=== PATIENT | female | born 1980 | race Caucasian/White ===

== ENCOUNTER 2019-11-01 14:27 | Observation (INO) | payer MEDICAID ==
[~2019-11-01] VITALS: Ht 157.5 cm; Wt 62.6 kg
[2019-11-01 14:34] VITALS: BP 118/84
--- NOTE | 2019-11-01 14:50 | NUR ---
PT AMBULATED TO BATHROOM FOR URINE SAMPLE. STEADY GAIT.
--- NOTE | 2019-11-01 14:58 | NUR ---
US AT BEDSIDE.
--- NOTE | 2019-11-01 15:07 | NUR ---
39 Y/ F PRESENTS TO ED WITH FOR VAGINAL BLEEDING SINCE 10/29/19, 11 WEEKS . G3, P2, L 2. PT C/O CRAMPING 4/10 PAIN, NON RADIATING. PT REPORTS BLEEDING WHILE VOIDING ONLY. PT GOES THROUGH 1 PAD PER DAY AND REPORTS MILD BLEEDING. DENIES URINARY FREQ OR DYSURIA. DENEIS N/V/D. DENIES CP, SOB. PT A &O X 4, NO DISTRESS NOTED. LUNGS CLEAR, S1S2 PRESENT. ABDOMEN SOFT, ACTIVE BS IN ALL 4 QUADRANTS. DENIES PMH NKDA
[2019-11-01 15:09] LABS: BASOPHILS # (AUTO) 0.1 K/uL (0.00-0.22); BASOPHILS % (AUTO) 0.6 % (0.0-2.0); EOSINOPHILS # (AUTO) 0.4 K/uL (0-0.4); EOSINOPHILS % (AUTO) 3.6 % (0.0-4.0); HEMATOCRIT 43.2 % (36-48); HEMOGLOBIN 13.9 g/dL (12.0-16.0); LYMPHOCYTES # (AUTO) 2.3 K/uL (2.5-16.5); LYMPHOCYTES % (AUTO) 22.3 % (20.5-51.1); MEAN CORPUSCULAR HEMOGLOBIN 27 pg (27-31); MEAN CORPUSCULAR HGB CONC 32 g/dL (33-37); MEAN CORPUSCULAR VOLUME 83.2 fL (80-94); MONOCYTES # (AUTO) 0.6 K/uL (0.8-1.0); MONOCYTES % (AUTO) 5.6 % (1.7-9.3); NEUTROPHILS # (AUTO) 7.1 K/uL (1.8-7.7); NEUTROPHILS % (AUTO) 67.9 % (42.2-75.2); PLATELET COUNT (AUTO) 318 K/uL (140-450); RED BLOOD CELL COUNT(AUTO) 5.19 MIL/uL (4.20-5.40); RED CELL DISTRIBUTION WIDTH 14.5 % (11.6-13.7); WHITE BLOOD COUNT (AUTO) 10.5 K/uL (4.8-10.8)
[2019-11-01 15:10] LABS: APPEARANCE,URINE CLEAR (CLEAR); BILIRUBIN,URINE NEGATIVE (NEGATIVE); BLOOD, URINE 3+ (NEGATIVE); COLOR,URINE YELLOW (YELLOW); LEUKOCYTE ESTERASE ,URINE NEGATIVE (NEGATIVE); NITRITE, URINE NEGATIVE (NEGATIVE); UGLUCOSE NEGATIVE (NEGATIVE)
[2019-11-01] MEDS ORDERED: MORPHINE SULFATE 4 MG/ML SYR IVP ONE (16:25)
[2019-11-01] MEDS ORDERED: KETOROLAC 30 MG/ML VIAL IVP ONE (16:35)
--- NOTE | 2019-11-01 16:41 | NUR ---
PT STATED LAST MEAL OF SMALL BREAD AND WATER WAS AT 1000.
[2019-11-01 16:55] LABS: RBC,URINE 11-20 (MOD) /HPF (0-5); WBC,URINE NONE SEEN /HPF (0-5)
--- NOTE | 2019-11-01 17:00 | NUR ---
Patient will be admitted to care of DR. BORJAS. Admited to [facility]. Will go to room 112A . Belongings list completed. Report to
--- NOTE | 2019-11-01 17:00 | NUR ---
PATIENT WHEELED TO FLOOR VIA WHEELCHAIR. PATIENT AOX4, AMBULATORY, NO SOB OR DISTRESS NOTED ON ROOM AIR. C/O PAIN, WILL ASSESS AND MEDICATE. RECEIVED REPORT FROM ER NURSE AT BEDSIDE FOR CONTINUITY OF CARE. ELIASIB AT BEDSIDE. PATIENT [place] SPEAKING ONLY. UPDATED BOARD. VS WNL. UPDATED THEM ABOUT PLAN OF CARE, THEY ORIENTED THEM TO ROOM, CALL LIGHT, TV, VISITING HOURS, AND BATHROOM. VERBALIZED UNDERSTANDING. PATIENT'S IV INTACT, ASYMPTOMATIC, SALINE LOCKED. CALL LIGHT WITHIN REACH, WILL CONTINUE TO MONITOR PATIENT.
[2019-11-01 17:20] VITALS: BP 111/67
--- NOTE | 2019-11-01 18:30 | NUR ---
PATIENT WHEELED OFF FLOOR TO GO TO PROCEDURE WITH DR. BORJAS. CONSENT NOT YET SIGNED BECAUSE DOCTOR HAD NOT SPOKEN TO PATIENT IN ER. STILL IN ROOM. WILL WAIT FOR PATIENT TO COME BACK.
[2019-11-01] MEDS ORDERED: DESFLURANE 240 ML BTL INH ONE (19:12)
[2019-11-01] MEDS ORDERED: KETOROLAC 30 MG/ML VIAL ONE (19:12)
[2019-11-01] MEDS ORDERED: ONDANSETRON 4 MG/2 ML VIAL ONE (19:12)
[2019-11-01] MEDS ORDERED: fentaNYL 0.05 MG/ML VIAL ONE ×2 (19:12→19:13)
[2019-11-01] MEDS ORDERED: DEXAMETHASONE 4 MG/ML VIAL ONE (19:12)
[2019-11-01] MEDS ORDERED: PROPOFOL 200 MG/20 ML VIAL IV ONE (19:12)
[2019-11-01] MEDS ORDERED: IBUPROFEN 800 MG TAB PO PRN (19:15)
[2019-11-01] MEDS ORDERED: oxyCODONE/APAP 5/325 MG 1 TAB TAB PO PRN (19:15)
[2019-11-01] MEDS ORDERED: ONDANSETRON 4 MG/2 ML VIAL IVP PRN (19:30)
[2019-11-01] MEDS ORDERED: HYDROmorphone 1 MG/ML AMP IVP PRN (19:30)
--- NOTE | 2019-11-01 19:30 | NUR ---
REPORT GIVEN TO KEY WORKER NURSE. PATIENT STILL IN PROCEDURE WITH DR. BORJAS.
--- NOTE | 2019-11-01 20:20 | NUR ---
PATIENT IS BACK ON THE FLOOR. PATIENT IS IN STABLE CONDITION. VITALS WERE TAKEN. WILL CONTINUE TO MONITOR.
[2019-11-01] MEDS: LACTATED RINGERS 1,000 ML IV SCH (20:29)
--- NOTE | 2019-11-01 20:35 | NUR ---
HELPED PATIENT AMBULATE TO THE BATHROOM. PATIENT TOLERATED IT WELL NO DISTRESS NOTED. WILL CONTINUE TO MONITOR.
--- NOTE | 2019-11-01 20:40 | NUR ---
GAVE PATIENT PAD. WILL MONITOR FOR BLEEDING.
--- NOTE | 2019-11-01 21:00 | NUR ---
PATIENT CHANGED PAD MODERATE AMOUNT OF BLOOD NOTED. WILL CONTINUE TO MONITOR.
--- NOTE | 2019-11-01 22:50 | NUR ---
PATIENT CHANGED PAD SATURATED WITH MODERATE AMOUNT OF BLOOD. WILL CONTINUE TO MONITOR.
[2019-11-02] VITALS: BP 96/56
--- NOTE | 2019-11-02 00:01 | NUR ---
VITALS WERE TAKEN. PATIENT IN STABLE CONDITION. WILL CONTINUE TO MONITOR.
--- NOTE | 2019-11-02 02:30 | NUR ---
CHECKED PATIENT. PATIENT SLEEPING RESPIRATION EVEN UNLABORED ON ROOM AIR. NO DISTRESS NOTED. WILL CONTINUE TO MONITOR.
--- NOTE | 2019-11-02 03:41 | NUR ---
CHECKED PATIENT. PATIENT STATED THAT SHE BLEED LESS NOW COMPARE BEFORE. WILL CONTINUE TO MONITOR.
[2019-11-02] MEDS: LACTATED RINGERS 1,000 ML IV SCH ×2 (06:36→15:15)
--- NOTE | 2019-11-02 07:35 | NUR ---
RECEIVED BEDSIDE REPORT FROM PM RN PT AWAKE IN BED INTRODUCED MYSELF AND INFORMED PT TO CALL IF SHE NEEDS ANYTHING. ALL SAFETY MEASURES ARE IN PLACE. WILL CONTINUE TO MONITOR.
[2019-11-02 08:50] VITALS: BP 103/49
--- NOTE | 2019-11-02 09:01 | NUR ---
PATIENT HAS BEEN SCREENED AND CATEGORIZED LOW NUTRITION RISK. PATIENT WILL BE SEEN WITHIN 7 DAYS OF ADMISSION. 2.10.[address]
--- NOTE | 2019-11-02 09:34 | NUR ---
FREQUENT ROUNDING ON PT PT APPEARS STABLE AND IN NO APPARENT DISTRESS. ALL SAFETY MEASURES ARE IN PLACE WILL CONTINUE TO MONITOR.
--- NOTE | 2019-11-02 11:34 | NUR ---
FREQUENT ROUNDING ON PT PT APPEARS STABLE AND IN NO APPARENT DISTRESS. ALL SAFETY MEASURES ARE IN PLACE WILL CONTINUE TO MONITOR.
--- NOTE | 2019-11-02 11:55 | NUR ---
SURY assessment/discharge plan Basic Screen: Yes Name: Polly Dick Home Relationship: Pre-Admission Living Arrangements: Lives with Other Other: Polly Dick Prior ADL Independent Current Home Health Name/Tel: N/A Current DME/02 Name/Tel: N/A Current Hospice Name/Tel: N/A Current Dialysis Name/Tel: N/A Healthcare Decision Maker: Patient Advance Directive No Information Taught: Advance Directive Community Resources Person Taught: Patient Spouse Teaching Tools: Community Resources Computer Generated Print Verbal Factors Affecting Learning: None Participation Level: Active Evaluation: Gestures Understanding Verbalizes Understanding Educator: SURY Feliz Discipline: Case Mgt/Social Svcs Tentative Discharge Plan Summary: Patient is a 39 year old female admitted for missed . I met with patient and patient's Polly Dick at bedside. Patient alert and oriented x4. Patient and Polly speak Indonesian. Patient lives at home with Polly and plans to return home upon discharge. Patient has been following with . She denied hx of mental health and alcohol/substance abuse. Patient reported Polly is emotionally supportive and she does not have any questions/concerns at this time. I provided them with education on [employer] www.[employer].org for community resources. Relay Tester Helper and/or Health Education Specialist will follow up as needed. Signature: SURY Feliz Date: Nov 02, 2019
--- NOTE | 2019-11-02 13:03 | NUR ---
FREQUENT ROUNDING ON PT PT APPEARS STABLE AND IN NO APPARENT DISTRESS. ALL SAFETY MEASURES ARE IN PLACE WILL CONTINUE TO MONITOR.
--- NOTE | 2019-11-02 15:34 | NUR ---
FREQUENT ROUNDING ON PT PT APPEARS STABLE AND IN NO APPARENT DISTRESS. ALL SAFETY MEASURES ARE IN PLACE
[2019-11-02 16:34] VITALS: BP 112/62
--- NOTE | 2019-11-02 17:22 | NUR ---
YOVANY Hood reminded to follow up with Dr. Simon regarding flu shot. Patient wants it upon discharge. Sana said she will.
[2019-11-02] MEDS ORDERED: DOCU-299 PO (17:40)
[2019-11-02] MEDS ORDERED: IBUP-2217 PO (17:40)
[2019-11-02] MEDS ORDERED: INFLUENZA VACCINE QUAD 0.5 ML SYR IMVAC PRN (18:15)
--- NOTE | 2019-11-02 18:47 | NUR ---
REVIEWED DISCHARGE INSTRUCTIONS WITH PATIENT AND FAMILY. USED SUPERVISOR OPERATIONS ANSWERED ALL QUESTIONS INFORMED PT TO FOLLOW UP WITH DR. BORJAS ON 11/08-11/[address] BORJAS PROVIDED. INFORMED PT OF DISCHARGE MEDICATIONS AT [facility] ON [address] ANSWERED ALL QUESTIONS ADMINISTERED FLU SHOT IN LEFT UPPER ARM. PT TOLERATED WELL. REMOVED IV IV TIP INTACT REMOVED ID BAND. PT WHEELED OUT VIA WHEEL CHAIR BY RUDDY MCNULTY. PT LEFT WITH SPOUSE AND CHILD. PT LEFT WITH ALL PERSONAL BELONGINGS.
== END 2019-11-02 18:55 | disposition home or self-care (01) ==
LOC: MED 14:27 → MTU 16:27 → MED 16:56 → MTU 16:56 → MDS 16:56 → MTU 16:57 → MOR 17:48
PROVIDERS: ADMIT Obstetrics & Gynecology; ATTEND Obstetrics & Gynecology
DX: O02.1 Missed abortion (principal); O09.521 Supervision of elderly multigravida, first trimester; Z3A.11 11 weeks gestation of pregnancy
CPT/HCPCS: 36415; 59820; 76817; 81001; 84702; 85025; 86900; 86901; 87081; 88305; 96374; 99285; G0378; J1100; J1885; J2405; J2704; J3010; J7030; J7120; Q0092

== ENCOUNTER 2022-03-01 14:30 | Observation (INO) | payer MEDICAID ==
[~2022-03-01] VITALS: Ht 152.4 cm; Wt 82.6 kg
[~2022-03-01 14:30] MED LIST: DOCU-299 PO; IBUP-2217 PO
[2022-03-01 15:53] LABS: BASOPHILS % (AUTO) 0.2 % (0.0-2.0); EOSINOPHILS # (AUTO) 0.3 K/uL (0-0.4); EOSINOPHILS % (AUTO) 2.6 % (0.0-4.0); HEMATOCRIT 38.5 % (36-48); HEMOGLOBIN 12.5 g/dL (12.0-16.0); LYMPHOCYTES # (AUTO) 1.7 K/uL (2.5-16.5); LYMPHOCYTES % (AUTO) 17.6 % (20.5-51.1); MEAN CORPUSCULAR HEMOGLOBIN 27 pg (27-31); MEAN CORPUSCULAR HGB CONC 33 g/dL (33-37); MEAN CORPUSCULAR VOLUME 82.8 fL (80-94); MONOCYTES % (AUTO) 9.8 % (1.7-9.3); NEUTROPHILS # (AUTO) 6.9 K/uL (1.8-7.7); NEUTROPHILS % (AUTO) 69.8 % (42.2-75.2); PLATELET COUNT (AUTO) 242 K/uL (140-450); RED BLOOD CELL COUNT(AUTO) 4.65 MIL/uL (4.20-5.40); RED CELL DISTRIBUTION WIDTH 14.2 % (11.6-13.7); WHITE BLOOD COUNT (AUTO) 9.9 K/uL (4.8-10.8)
[2022-03-01 16:09] LABS: ALBUMIN 2.5 g/dL (3.4-5.0); ANION GAP 11.3 (8-16); CARBON DIOXIDE 23.6 mmol/L (21-32); CREATININE 0.5 mg/dL (0.6-1.3); POTASSIUM 3.9 mmol/L (3.5-5.1); TOTAL BILIRUBIN 0.3 mg/dL (0.0-1.0)
[2022-03-01] MEDS ORDERED: LACTATED RINGERS 1,000 ML IV SCH (16:20)
[2022-03-01] MEDS ORDERED: BETAMETH ACET/BETAMETH NA PH 30 MG/5 ML VIAL IM SCH (16:20)
[2022-03-01] MEDS ORDERED: LACTATED RINGERS 500 ML IV SCH (16:27)
[2022-03-01 16:39] VITALS: BP 121/66
[2022-03-01] MEDS ORDERED: NIFEdipine 10 MG CAPLF PO SCH (18:13)
[2022-03-02] MEDS ORDERED: PNV91TAB8 PO (19:03)
== END 2022-03-01 21:40 | disposition home or self-care (01) ==
LOC: MLD 14:30
PROVIDERS: ADMIT Obstetrics & Gynecology; ATTEND Obstetrics & Gynecology
DX: O62.9 Abnormality of forces of labor, unspecified (principal); Z20.822 Contact with and (suspected) exposure to COVID-19; O26.893 Other specified pregnancy related conditions, third trimester; R60.0 Localized edema; Z3A.37 37 weeks gestation of pregnancy
CPT/HCPCS: 36415; 59025; 80053; 81000; 85025; 85384; 87426; 96360; 96361; 96372; G0378; J0702

== ENCOUNTER 2022-03-02 18:00 | Observation (INO) | payer MEDICAID ==
[~2022-03-02] VITALS: Ht 152.4 cm; Wt 82.6 kg
[~2022-03-02 18:00] MED LIST changes: -IBUP-2217 PO
[2022-03-02 18:12] VITALS: BP 126/69
[2022-03-02] MEDS ORDERED: BETAMETH ACET/BETAMETH NA PH 30 MG/5 ML VIAL IM ONE (19:00)
[2022-03-02] MEDS ORDERED: PNV91TAB8 PO (19:03)
== END 2022-03-02 20:10 | disposition home or self-care (01) ==
LOC: MED 18:00 → EDSTATUS 18:51 → MLD 18:52
PROVIDERS: ADMIT Obstetrics & Gynecology; ATTEND Obstetrics & Gynecology
DX: O60.03 Preterm labor without delivery, third trimester (principal); Z3A.36 36 weeks gestation of pregnancy
CPT/HCPCS: 59025; 96372; 96374; G0378; J0702; 99284

== ENCOUNTER 2022-03-04 07:30 | Inpatient (IN) | payer MEDICAID ==
[~2022-03-04] VITALS: Ht 152.4 cm; Wt 82.6 kg
[~2022-03-04 07:30] MED LIST changes: +PNV91TAB8 PO
[2022-03-04 08:00] VITALS: BP 125/79
[2022-03-04] MEDS ORDERED: AMPICILLIN 2,000 MG VIAL ONE ×2 (09:08→19:08)
[2022-03-04] MEDS: LACTATED RINGERS 1,000 ML IV SCH ×2 (09:42→19:57)
[2022-03-04] MEDS: AMPICILLIN 2,000 MG in NACL 0.9% 100 ML IV SCH ×2 (09:43→19:15)
[2022-03-04] MEDS: AZITHROMYCIN 500 MG in DEXTROSE 5% 250 ML IV SCH (11:20)
--- NOTE | 2022-03-04 14:24 | NUR ---
PATIENT HAS BEEN SCREENED AND CATEGORIZED LOW NUTRITION RISK. PATIENT WILL BE SEEN WITHIN 7 DAYS OF ADMISSION. 03/10/[address]
[2022-03-05] MEDS ORDERED: AMPICILLIN 2,000 MG VIAL ONE ×4 (00:22→19:26)
[2022-03-05] MEDS: AMPICILLIN 2,000 MG in NACL 0.9% 100 ML IV SCH ×4 (01:13→19:35)
[2022-03-05] MEDS: LACTATED RINGERS 1,000 ML IV SCH ×2 (06:00→16:58)
[2022-03-05] MEDS: AZITHROMYCIN 500 MG in DEXTROSE 5% 250 ML IV SCH (11:32)
[2022-03-06] MEDS: LACTATED RINGERS 1,000 ML IV SCH (00:50)
[2022-03-06] MEDS ORDERED: AMPICILLIN 2,000 MG VIAL ONE (00:53)
[2022-03-06] MEDS: AMPICILLIN 2,000 MG in NACL 0.9% 100 ML IV SCH ×2 (01:09→07:09)
[2022-03-06] MEDS ORDERED: AMPICILLIN 1,000 MG VIAL ONE (06:37)
== END 2022-03-06 07:45 | disposition home or self-care (01) | DRG 566 ==
LOC: MLD 07:30 → OBSVTOIN 08:55
PROVIDERS: ADMIT Obstetrics & Gynecology; ATTEND Obstetrics & Gynecology
DX: O42.913 Preterm premature rupture of membranes, unspecified as to length of time between rupture and onset of labor, third trimester (principal); Z20.822 Contact with and (suspected) exposure to COVID-19; Z3A.35 35 weeks gestation of pregnancy
CPT/HCPCS: 76815; 81000; J0290; J0456; J7060; Q0092

== ENCOUNTER 2024-06-23 12:11 | Emergency (ER) | payer MEDICAID, OTHER ==
[~2024-06-23] VITALS: Ht 152.4 cm; Wt 72.3 kg
[2024-06-23 12:20] VITALS: BP 125/75; PULSE 82; RESP 16; TEMP 97.7; O2SAT 97
[2024-06-23 12:49] LABS: APPEARANCE,URINE CLEAR (CLEAR); BILIRUBIN,URINE NEGATIVE (NEGATIVE); BLOOD, URINE NEGATIVE (NEGATIVE); COLOR,URINE YELLOW (YELLOW); LEUKOCYTE ESTERASE ,URINE NEGATIVE (NEGATIVE); NITRITE, URINE NEGATIVE (NEGATIVE); PROTEIN,URINE NEGATIVE (NEGATIVE); UGLUCOSE TRACE (NEGATIVE); UROBILINOGEN,URINE 0.2 EU/dL (0.2 - 1)
[2024-06-23] MEDS: ONDANSETRON 4 MG ODT PO ONE (12:55)
[2024-06-23] MEDS: ACETAMINOPHEN EXTRA STRENGTH 500 MG TAB PO ONE (12:56)
[2024-06-23 13:04] LABS: BACTERIA,URINE FEW /HPF (None Seen); RBC,URINE 0-5 /HPF (0-5); SQUAMOUS EPITHELIAL CELL,UR 0-3 (FEW) /LPF (0-3 (FEW)); WBC,URINE 0-5 /HPF (0-5)
[2024-06-23] MEDS ORDERED: LORA-1047 PO (13:12)
[2024-06-23] MEDS ORDERED: ACET500T99 PO (13:12)
[2024-06-23] MEDS ORDERED: FLONAS NS (13:12)
[2024-06-23] MEDS ORDERED: ONDA-188 PO (13:12)
[2024-06-23 13:15] VITALS: O2SAT 97
[2024-06-23 13:20] VITALS: TEMP 97.7
== END 2024-06-23 13:20 | disposition home or self-care (01) ==
LOC: MED 12:11
DX: J30.9 Allergic rhinitis, unspecified (principal); R51.9 Headache, unspecified; R30.0 Dysuria; Z79.899 Other long term (current) drug therapy
CPT/HCPCS: 81001; 81025; 99283; Q0162